=== PATIENT | male | born 1965 | race Caucasian/White ===

== ENCOUNTER 2016-04-23 08:34 | Day surgery (SDC) | payer BC, OTHER ==
[2016-04-23] MEDS ORDERED: PROPOFOL 500 MG/50 ML EMU IV ONE (08:42)
[2016-04-23] MEDS ORDERED: FENTANYL CITRATE 50 MCG/ML SOL ONE (08:52)
[2016-04-23] MEDS ORDERED: BUPIVACAINE/EPI 0.5% 10 ML SOL INFIL ONE (08:58)
[2016-04-23] MEDS ORDERED: PROPOFOL 10 MG/ML EMU IV ONE (10:08)
[2016-04-23 10:56] VITALS: O2SAT 95
[2016-04-23 11:08] VITALS: BP 109/68; PULSE 63; RESP 18; TEMP 97.4
== END 2016-04-23 11:40 | disposition home or self-care (01) ==
LOC: SURG 08:34
PROVIDERS: ATTEND Surgery
DX: Z12.11 Encounter for screening for malignant neoplasm of colon (principal); D12.2 Benign neoplasm of ascending colon; D36.10 Benign neoplasm of peripheral nerves and autonomic nervous system, unspecified
CPT/HCPCS: 45385; 64790; 99001; J2704 ×2; J3010; A6402